=== PATIENT | male | born 1935 | race Hispanic/Latino ===

== ENCOUNTER 2018-05-04 15:49 | Observation (INO) | payer MEDICAID, SELFPAY ==
[~2018-05-04 15:49] MED LIST: ISOVUE-370 76%-LOCM 1 ML ONE
--- NOTE | 2018-05-04 18:02 | CT ---
CT ANGIOGRAM HEAD CT ANGIOGRAM NECK 05/04/18 COMPARISON: None. HISTORY: Dizziness and headache. TECHNIQUE: Serial axial CT imaging at 5 mm intervals from vertex through skull base without contrast. Then, violai al axial CT imaging at 1.25 mm intervals from vertex through lung apices with IV contrast using a CT angiogram protocol. Coronal and sagittal 3D reformatted imaging obtained. FINDINGS: Noncontrast enhanced head CT demonstrates no intracranial hemorrhage, midline shift or mass effect. There is deep, periventricular, and subcortical white matter hypodensity suggesting a mild degree of small vessel disease. The imaged paranasal sinuses and mastoid air cells demonstrate mild mucosal thi ckening of the ethmoid air cells bilaterally and the left maxillary sinus. CT angiogram of the head demonstrates patency of the petrous and cavernous segments of bilateral inte rnal carotid arteries. The M1 segment is patent bilaterally and the MCA bifurcation as well as the IC A bifurcation appears grossly unremarkable. The A1 segment on the left is hypoplastic. Distal SARINA and MCA branches appear grossly unremarkable. No saccular aneurysm, high grade stenosis or central vascu lar occlusion is apparent involving the anterior circulation. Distal vertebral arteries are patent bilaterally. The basilar artery and its branches are patent with no central occlusion, hemodynamically significant stenosis or saccular aneurysm. Bilateral posterior cerebral arteries are patent. CT angiogram of the neck demonstrates an unremarkable appearance of bilateral lung apices aside from bilateral mild apical pleural thickening and subpleural cystic change. There is a tiny 2-3 mm nodule in right upper lobe on image 68 of doubtful clinical significance. The origin of the innominate artery, left subclavian artery, left common carotid artery, left vertebr al artery, right vertebral artery, right common carotid artery, and right subclavian artery are unrem arkable. There is no hemodynamically significant stenosis involving the ICA or the CCA on either side on the b asis of NASCET criteria. Bilateral vertebral arteries are unremarkable. Limited assessment of the neck demonstrates no lymphadenopathy. The retroantral and the parapharyngea l fat is clear bilaterally. The parotid and the submandibular glands appear grossly unremarkable oliver aterally. The thyroid gland, cricoid cartilage, thyroid cartilage, level of the glottis, hyoid bone, epiglottis, pre-epiglottic fat, and region of the tonsillar pillars appears grossly unremarkable. Rev iew of the osseous structures demonstrates no worrisome lytic or blastic bone lesion. IMPRESSION: No acute findings. Incidental findings as described above. POS: [facility]
[2018-05-04] MEDS ORDERED: Ondansetron ODT 4 MG TAB PO PRN (19:08)
[2018-05-04] MEDS ORDERED: Acetaminophen 325 MG TAB PO PRN (19:08)
[2018-05-04] MEDS ORDERED: Meclizine HCl 12.5 MG TAB PO PRN (19:08)
[2018-05-04] MEDS ORDERED: Mag-Al 1200 mg/1200 mg/30 ML UDCUP PO PRN (19:08)
--- NOTE | 2018-05-04 20:46 | HP ---
Mr. Smith is Marshallese speaking only and the history was obtained with the aid of a clay mine cutting machine operator. HISTORY OF PRESENT ILLNESS: Mr. Smith is a pleasant 82-year-old gentleman who was sent over from [facility] due to complaints of dizziness. There are 2 different versions of this story. Mr. Smith says that he was feeling dizzy for about 10-15 minutes at the most and during the time he was feeling dizz y, he had some nausea and vomiting and was feeling extremely weak. Apparently, it was felt that when he was in [place] that the symptoms lasted much longer period and the patient's daughter who is at the bedside says that it lasted about 15 minutes, it is completely gone now and she says that they we re concerned primarily because he was sweating a lot and was extremely weak and when they were trying to get him in the truck to get to the hospital, he could barely walk. The patient says that he feel s fine now. He denies having any weakness in his arms or legs, any numbness. He denies any chest pa in. He does admit to some rectal bleeding. He says he does have a history of hemorrhoids and the bl eeding is actually less than before. He denies having any rectal pain and the bleeding has been off and on. The patient denies any abdominal pain and any straining. REVIEW OF SYSTEMS: All systems were reviewed and are negative except for that mentioned in history o f present illness. PAST MEDICAL HISTORY: Significant for hypertension. PAST SURGICAL HISTORY: He has had hemorrhoid removal. ALLERGIES: No known drug allergies. SOCIAL HISTORY: He smokes cigars. He is a nondrinker. FAMILY HISTORY: No history of any inheritable diseases. CURRENT MEDICATIONS: Enalapril 20 mg daily. PHYSICAL EXAMINATION: GENERAL: He is alert and oriented. He appears to be in no acute distress. VITAL SIGNS: Blood pressure was 158/88, heart rate 59, respiratory rate of 18, temperature is 97.7. HEENT: Pupils are equal, round, and reactive. Extraocular muscles are intact. His sclerae are anic teric. Throat, no erythema, no exudates. NECK: No adenopathy, no bruits. LUNGS: Clear to auscultation. There is no wheezing, no rales. CARDIOVASCULAR: He has a normal S1 and S2. No S3 or S4. No murmurs, clicks or rubs. ABDOMEN: Soft, it is nontender, nondistended. Positive for bowel sounds. No rebound or guarding. EXTREMITIES: There is no clubbing, cyanosis, no edema. He does have some varicose veins. NEUROLOGIC: Cranial nerves II-XII are grossly intact. His muscle strength is 5/5 in both his upper and lower extremities. LABORATORY DATA: The white blood cell count is 9.1, hemoglobin 10.7, hematocrit is 32.1, platelet co unt is 224. Sodium 142, potassium 3.4, chloride is 107, CO2 is 25, BUN of 17, creatinine 1.0. Gluco se is 114. CT scan of the brain. The current report is pending, but it was reported as being negati ve for any acute intracranial process. CT angiogram of the neck is pending. ASSESSMENT AND PLAN: 1. This is a pleasant 82-year-old gentleman that presents to the emergency room complaining of nause a, vomiting, and feeling dizzy. His symptoms sound more like it could be due to a viral illness give n the sweats and generalized weakness and it seems as if it went for a much shorter period of time, t hen may have been previously mentioned, or there is some discrepancy in the timeframe and the patient may be minimizing his symptoms. We will therefore place him in observation, get an MRI of the brain to rule out stroke and get an echocardiogram. We will also hydrate him given at the suspicion of a potential viral syndrome and treat him symptomatically for the dizziness. Place him on an aspirin a day. 2. For the rectal bleeding, it sounds like it could be hemorrhoidal bleeding as it seems to be off a nd on and less than it had been in the past. We will monitor an H&H and I explained to the family th rough the automotive parts interpreter that this can be worked up in the outpatient setting and we will treat him symp tomatically for hemorrhoids for now. 3. For hypertension, we will continue him on his usual dose of medications for blood pressure and a lipid profile will also be ordered.
[2018-05-04 20:50] VITALS: BMI 22.8
[2018-05-04] MEDS: Sodium Chloride 0.9% 1,000 ML IV SCH (22:13)
[2018-05-04] MEDS: Atorvastatin Calcium 40 MG TAB PO SCH (22:13)
[2018-05-05 05:35] LABS: #Basophils 0.1 thou/uL (0.0-0.2); #Eosinphils 0.4 thou/uL (0.0-0.7); #Lymphocytes 2.2 thou/uL (1.20-3.40); #Monocytes 0.4 thou/uL (0.11-0.59); #Neutrophils 3.7 thou/uL (1.40-6.50); %Basophils 1.2 % (0.0-1.0); %Eosinophils 6.1 % (0.0-10.0); %Lymphocytes 32.5 % (21.0-51.0); %Monocytes 5.8 % (0.0-10.0); %Neutrophils 54.4 % (42.0-75.0); Hemoglobin 10.9 g/dL (14.0-18.0); Mean Corpuscular HGB CONC 33.1 g/dL (32.0-36.0); Mean Corpuscular Volume 78.5 fL (78.0-98.0); Mean Platelet Volume 8.7 fL (7.4-10.4); Platelet Count 202 thou/uL (130-400); RBC Distribution Width 15.6 % (11.5-14.5); Red Blood Cell (RBC) Count 4.18 mill/uL (4.70-6.10); White Blood Cell (WBC) Count 6.8 thou/uL (4.8-10.8)
[2018-05-05 05:48] LABS: Anion Gap 11 mmol/L (10-20); BUN (Urea Nitrogen) 12 mg/dL (8.4-25.7); Calc. Creatinine Clearance 58 mL/min (70-130); Calcium 8.7 mg/dL (7.8-10.44); Carbon Dioxide 25 mmol/L (23-31); Chloride 107 mmol/L (98-107); Cholesterol 187 mg/dl (< 200 Desired); Estimated GFR-MDRD 88; Glucose 94 mg/dL (83-110); HDL Cholesterol 47 mg/dL (>60 Neg Risk); LDL Cholesterol, Calculated 122 mg/dL; Potassium 3.6 mmol/L (3.5-5.1); Sodium 139 mmol/L (136-145); Triglycerides 92 mg/dL (Less than 150)
[2018-05-05] MEDS ORDERED: Aspirin 325 mg Enteric Coated Tablet PO SCH (09:00)
[2018-05-05] MEDS: Sodium Chloride 0.9% 1,000 ML IV SCH ×3 (09:13→21:12)
[2018-05-05] MEDS ORDERED: Lorazepam 2 MG/ML VIAL SLOW IVP SCH (10:15)
--- NOTE | 2018-05-05 13:03 | PDOC.PN ---
- Subjective Encounter Start Date: 05/05/18 Encounter Start Time: 13:01 Subjective: Feeling much better, less weak, no dizziness, walking to the bathroom Small amount of rectal bleeding, ongoing for a long time, never had colonoscopy - Objective Resuscitation Status: Resuscitation Status FULL:Full Resuscitation Vital Signs & Weight: Vital Signs (12 hours) Temp Pulse Pulse Pulse Pulse Resp BP 05/05/18 09:56 68 66 67 156/89 H 05/05/18 07:45 97.7 F 66 18 05/05/18 05:53 97.5 F L 55 L 16 BP BP BP Pulse Ox 05/05/18 09:56 169/90 H 170/87 H 05/05/18 07:45 168/88 H 99 05/05/18 05:53 144/73 H Weight Weight 129 lb I&O: 05/04/18 05/05/18 05/06/18 06:59 06:59 06:59 Intake Total 1215 Balance 1215 Result Diagrams: 05/05/18 05:20 05/05/18 05:20 Phys Exam - Physical Examination HEENT: PERRLA, moist MMs, sclera anicteric, TM's clear, oral pharynx no lesions , 2+ tonsils Neck: no nodes, no JVD, supple, full ROM Respiratory: no wheezing, no rales, no rhonchi, wheezing present, clear to auscultation bilateral Cardiovascular: RRR, no significant murmur, no rub, gallop, irregular Musculoskeletal: no edema, pulses present, edema present Neurological: non-focal, normal sensation, moves all 4 limbs Psychiatric: normal affect, A&O x 3 Skin: no rash, normal turgor, cap refill <2 seconds Dx/Plan (1) Dizziness Code(s): R42 - DIZZINESS AND GIDDINESS Status: Acute Comment: resolved since admission, CTH negative for any acute changes, cta WNL, Pending MRI and echo. Questionable bradycardia. In sinus on tele. (2) Hematochezia Code(s): K92.1 - MELENA Status: Chronic Comment: a small drop in Hb.Possibly from hemorrohoides. No history of colonoscopy (3) Anemia Code(s): D64.9 - ANEMIA, UNSPECIFIED Status: Acute Qualifiers: Iron deficiency anemia type: chronic blood loss - Plan cont current plan of care, plan discussed w/ family, PT/OT, DVT proph w/lovenox , DVT proph w/SCDs * .
--- NOTE | 2018-05-05 13:41 | MRI ---
MRI OF BRAIN WITHOUT CONTRAST: Multiplanar, multisequential imaging of brain obtained. INDICATION: Dizziness. Assess for central stroke. FINDINGS: Mild cortical volume loss. Ventricles have normal size and position. Moderately severe chronic isch emic white matter changes are seen. There is no evidence of restricted diffusion. No evidence of acute or subacute infarct. No mass or edema seen. The intracranial internal carotid arteries and proximal cerebral arteries show flow voids. Basilar a rtery is patent. Dural venous sinuses show flow voids. IMPRESSION: Moderate to severe chronic ischemic white matter changes. No acute process identified. POS: [facility]
--- NOTE | 2018-05-05 17:08 | CON ---
DATE OF CONSULTATION: 05/05/2018 CONSULTING PHYSICIAN: Hospitalist Service. IMPRESSION: 1. Possible basilar transient ischemic attack. 2. MRI suggested a small vessel ischemic disease. PLAN: 1. Aspirin 81 mg per day. 2. Lipitor 40 mg per day. 3. Echocardiogram. HISTORY OF PRESENT ILLNESS: Mr. Smith is an 82-year-old man who came in after an episode th at occurred yesterday. He reports that he had a feeling of generalized weakness as if he could not f eel his entire body. He was unable to speak and complained of some degree of dizziness and headache, it is unclear as to the duration of the event came into the emergency room last evening. His CT ang iogram was unremarkable. He has had an MRI of the brain done this morning, which has not been read o ut. Do not see any evidence of an acute ischemic injury, but there is evidence of a moderate amount of chronic small vessel ischemic change. His laboratory studies will include a CBC and serum chemistry, which were all unremarkable. He has n ot had any further episodes since he has arrived, his vital signs have been stable with mild hyperten velma, but no orthostatic change noted. PAST MEDICAL HISTORY: Otherwise, unremarkable. ALLERGIES: None. SOCIAL HISTORY: Lives at home with his family. REVIEW OF SYSTEMS: Otherwise, negative for any complaints of chest pain, but he does report some vibha rtness of breath. PHYSICAL EXAMINATION: GENERAL: He is a thin elderly man, in no acute distress. VITAL SIGNS: Blood pressure 170/87, pulse 66, respirations 18, temperature 97.7. HEENT: Pupils equal and reactive. Conjunctivae are clear. Oropharynx clear. NECK: Supple, no lymphadenopathy. EXTREMITIES: No cyanosis, clubbing or edema. NEUROLOGIC: He was alert and cooperative. He spoke very quietly. He followed commands appropriatel y. His exam was nonfocal could walk independently. SUMMARY: Elderly gentleman presents with hypertension and small vessel ischemic disease. He may hav e had a basilar transient ischemic attack based on the available history. Agree with current managem ent.
[2018-05-05] MEDS: Atorvastatin Calcium 40 MG TAB PO SCH (21:10)
[2018-05-06] MEDS: Sodium Chloride 0.9% 1,000 ML IV SCH (05:40)
[2018-05-06 08:10] LABS: #Basophils 0.1 thou/uL (0.0-0.2); #Eosinphils 0.4 thou/uL (0.0-0.7); #Lymphocytes 2.2 thou/uL (1.20-3.40); #Monocytes 0.4 thou/uL (0.11-0.59); #Neutrophils 5.4 thou/uL (1.40-6.50); %Eosinophils 4.2 % (0.0-10.0); %Lymphocytes 26.4 % (21.0-51.0); %Monocytes 4.3 % (0.0-10.0); %Neutrophils 64.1 % (42.0-75.0); Hemoglobin 11.4 g/dL (14.0-18.0); Mean Corpuscular Hemoglobin 26.2 pg (27.0-31.0); Mean Corpuscular Volume 79.3 fL (78.0-98.0); Mean Platelet Volume 8.9 fL (7.4-10.4); Platelet Count 195 thou/uL (130-400); RBC Distribution Width 15.8 % (11.5-14.5); Red Blood Cell (RBC) Count 4.35 mill/uL (4.70-6.10); White Blood Cell (WBC) Count 8.4 thou/uL (4.8-10.8)
[2018-05-06 08:13] LABS: Anion Gap 10 mmol/L (10-20); BUN (Urea Nitrogen) 9 mg/dL (8.4-25.7); Calc. Creatinine Clearance 60 mL/min (70-130); Calcium 8.4 mg/dL (7.8-10.44); Carbon Dioxide 25 mmol/L (23-31); Chloride 108 mmol/L (98-107); Estimated GFR-MDRD Greater than 90; Glucose 88 mg/dL (83-110); Potassium 3.7 mmol/L (3.5-5.1); Sodium 139 mmol/L (136-145)
[2018-05-06 11:36] VITALS: TEMP 97.5
[2018-05-06 11:37] VITALS: BP 169/87
--- NOTE | 2018-05-06 11:40 | DIS ---
PRIMARY CARE PHYSICIAN: Dr. Brian Wallace CONSULTANTS: Dr. Scooby Haley, Neurology MEDICATIONS: Reconciled at discharge. NEW MEDICATIONS: 1. Aspirin 81 mg daily. 2. Atorvastatin 40 mg p.o. at bedtime. Prescription provided for 30 tablets, no refills. Further refills from Dr. Wallace. MEDICATIONS TO CONTINUE: 1. Enalapril 20 mg tablet 1/2 tablet p.o. b.i.d. 2. Bisacodyl 5 mg p.o. daily as needed for constipation. 3. Tylenol 325 mg 1-2 tablets every 6 hours as needed for pain. FOLLOW UP: Follow up is with Dr. Wallace this week for evaluation of blood pressure and further evaluation of blood in stool. FINAL DIAGNOSES: 1. Nausea, vomiting, dizziness, resolved possible Basilar TIA. Negative evaluation for a stroke. 2. Moderate to severe chronic ischemic white matter changes. 3. Hypertension, not optimally controlled. 4. Constipation. 5. Anemia, mild and chronic. HISTORY OF PRESENT ILLNESS: Mr. Smith is an 82-year-old gentleman who was sent to the emergency room due to dizziness for 10-15 minutes, associated with nausea and vomiting. The patient was also complaining of weakness, and some rectal bleeding that had not been recently evaluated with a history of hemorrhoids. The patient was admitted for further evaluation. HOSPITAL COURSE: The patient was monitored on telemetry and found to maintain a sinus rhythm with some PACs, underwent echocardiogram which showed an EF of 60 -65% and grade 1/3 diastolic dysfunction. He also underwent MRI which showed moderate to severe chronic white matter ischemic changes, but no acute process was identified. Neurology consultation was obtained due to concern that this could be a basilar transient ischemic attack. Dr. Haley recommended aspirin, statin, and completing a TIA workup. Due to concern for stroke, the patient was allowed permissive hypertension, and his blood pressure without medication ranged from the 150s to the 180 systolic. Since stroke has been ruled out, he will receive a dose of his home enalapril today, resume his home medication tonight and follow up this week with Dr. Wallace. He was started on statin therapy for an LDL of 122. The patient denies any symptoms today, specifically denies nausea, vomiting, dizziness. He has been able to be up and ambulate and is without complaints. He therefore meets criteria for discharge to home. PHYSICAL EXAMINATION: VITAL SIGNS: Blood pressure 181/90, temperature 97.9, pulse 67, respirations 14 , saturations 97% on room air. GENERAL: Awake, alert, responsive, in no apparent distress, able to speak with the outreach nurse in regular sentences. HEENT: Extraocular movements intact. Oral mucosa is pink and moist. NECK: Supple, nontender. LYMPHATICS: No palpable cervical or supraclavicular lymphadenopathy. LUNGS: Distant lungs sounds. No audible wheezing, rhonchi or rales. HEART: Distant heart sounds. No significant murmurs, regular rate and rhythm. ABDOMEN: Soft, nontender. EXTREMITIES: No clubbing, cyanosis, or edema. TEJADA FINDINGS AND TEST RESULTS: 1. CBC: 8.4, 11.4, 34.6, 195. 2. Renal panel: 139, 3.7, 108, 25, 90.81, 88. 3. LDL 122, HDL 47, cholesterol 187, triglycerides 92. 4. Brain MRI shows moderate to severe chronic ischemic white matter changes, no acute process. 5. CT scan, no acute findings, incidental findings. 6. CT angiogram of the head and neck notable for small vessel disease, mild mucosal thickening of the ethmoid air cells bilateral and left maxillary sinus. No significant occlusion of the vertebral arteries, 2-3 mm nodule in the right upper lobe of the lung, doubtful of clinical significance. DIET: Heart healthy. ACTIVITY: As tolerated. I reviewed with the patient and his family through the use of a video venetian blind cleaner this hospitalization, the study findings, the importance and reason for following up with Dr. Wallace and the seek care precautions. His family member demonstrates understanding of all of the above. The patient is not able to do a teach back, but nods and states that he understands. There were no questions or further needs at end of evaluation. Total time coordinating discharge is 40 minutes. HAZEL
== END 2018-05-06 13:37 | disposition home or self-care (01) ==
LOC: ERS 15:49 → 2SE 18:43
PROVIDERS: ADMIT Internal Medicine; ATTEND Internal Medicine
DX: R42 Dizziness and giddiness (principal); R11.2 Nausea with vomiting, unspecified; I10 Essential (primary) hypertension; F17.290 Nicotine dependence, other tobacco product, uncomplicated; K92.1 Melena; D50.0 Iron deficiency anemia secondary to blood loss (chronic); K59.00 Constipation, unspecified; Z79.899 Other long term (current) drug therapy
CPT/HCPCS: 36415; 70496; 70498; 70551; 80048; 80061; 82274; 85025; 90471; 90732; 93005; 93306; 96374; G0009; G0378; G8978-GP-CH; G8979-GP-CH; G8980-GP-CH; G8987-GO-CI; G8988-GO-CI; G8989-GO-CI; J2060